=== PATIENT | male | born 1945 | race Caucasian/White ===

== ENCOUNTER 2023-05-20 13:39 | Emergency (ER) | payer MEDICARE, OTHER, SELFPAY ==
[2023-05-20 13:47] VITALS: BP 111/64; PULSE 71; RESP 18; TEMP 36.9; O2SAT 97; BMI 19.8
== END 2023-05-20 14:30 | disposition home or self-care (01) ==
LOC: ED 14:26
PROVIDERS: Emergency Provider Family Medicine; PCP Family Medicine
DX: K40.90 Unilateral inguinal hernia, without obstruction or gangrene, not specified as recurrent (principal)
CPT/HCPCS: 99282; 99283

== ENCOUNTER 2023-11-25 17:11 | Emergency (ER) | payer MEDICARE, OTHER, SELFPAY ==
[2023-11-25 17:24] VITALS: BP 151/51; PULSE 52; RESP 17; TEMP 36.4; O2SAT 97; BMI 20.4
--- NOTE | 2023-11-25 18:14 | ED_ITS ---
HPI - General Adult General Date Seen: 11/25/23 Chief complaint: Groin Pain Stated complaint: Hernia issues Time Seen by Provider: 11/25/23 18:00 History of Present Illness HPI narrative: This is a 78-year-old male brought to the ER today by his family. He has a history of dementia so is a limited historian. His primary care is through the [facility] system. 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 He presents to the ER today with his for evaluation of right groin pain and swelling. History is limited because of the patient's dementia but he is able to tell me he thinks he has a groin hernia and he thinks he probably had a left hernia repaired some years ago. His was unaware that he had any pain or trouble with his right groin. History from his is that she was out grocery shopping today and he was calling her, feeling distressed because he was having pain in his right groin. By the time she got home he said it was not really pain but more of a ?discomfort. ?. She noted a swollen area there. She brought him to the ER today to find out what was wrong and suspecting it was probably hernia, find out what needs to be done about it. He has not have any abdominal pain. No flank pain. No vomiting. No fever. Related Data Home Medications ?Medication ?Instructions ?Recorded ?Confirmed Allergy Relief (fluticasone) 05/20/23 aspirin 81 mg tablet,delayed 81 mg PO DAILY 05/20/23 05/20/23 release (Adult Aspirin Regimen) enalapril-hydrochlorothiazide 05/20/23 multivitamin (Daily Multi-Vitamin 1 tab PO DAILY 05/20/23 05/20/23 tablet) rosuvastatin 10 mg tablet 10 mg PO DAILY 05/20/23 05/20/23 sertraline 50 mg tablet 25 mg PO DAILY 05/20/23 05/20/23 Allergies Allergy/AdvReac Type Severity Reaction Status Date / Time No Known Drug Allergies Allergy Verified 05/20/23 13:50 PFSH PFSH Social History Smoking Status: Never smoker Do you use any of these nicotine containing products: None Second hand tobacco smoke exposure: No How often do you have a drink containing alcohol: never How often do you have six or more drinks on one occasion: Never AUDIT-C Alcohol total score: 0 Non-prescribed substance use: denies use service: No Exam Narrative: Exam Narrative: Constitutional: Appears well-developed and well-nourished. Alert. Conversant. Non toxic. HENT: Head: Atraumatic. Nose: Nose normal. Mouth/Throat: Oral mucosa is clear and moist. no trismus. Eyes: Conjunctivae normal. EOM normal. Pupils equal, round, and reactive to light. No scleral icterus. Neck: Normal range of motion. Neck supple. No tracheal deviation present. Cardiovascular: Normal rate, regular rhythm. No gallop. No friction rub. No murm ur heard. Symmetric radial artery pulses Pulmonary/Chest: Effort normal. No stridor. No respiratory distress. No wheezes. No rales. No rhonchi . No tenderness. Abdominal: Soft. Bowel sounds normal. No distension. No mass. No tenderness. No rebound. No guarding. : Normal circumcised penis. He does have a right inguinal/right scrotal mass with audible bowel sounds consistent with a loop of intestine in a right inguinal hernia. With the patient supine and was able to gently reduce the hernia completely back into the abdominal cavity. After this his right inguinal canal and scrotum are palpably normal. He tolerated the reduction with no pain. I had the patient perform a Valsalva maneuver and the hernia recurred. I was again able to gently and painlessly reduce it. Musculoskeletal: RUE: Normal range of motion. No tenderness. No deformity LUE: Normal range of motion. No tenderness. No deformity RLE: Normal range of motion. No edema. No tenderness. No deformity LLE: Normal range of motion. No edema. No tenderness. No deformity Lymph: No cervical adenopathy. Neurological: Alert and oriented to person, place, and time. Normal strength. CN II-VII intact. No sensory deficit. GCS eye subscore is 4. GCS verbal subscore is 5. GCS motor subscore is 6. Normal coordination Skin: Skin hyper pigmented on right cheek and around her right eye. Skin is warm and dry. No rash noted. No pallor. Normal capillary refill. Psychiatric: Normal mood. Normal affect. Const: Vital Signs, click to edit/add: Vital Signs - 24 hr 07/12/24 17:24 Temperature 97.6 F Pulse Rate [Pulse Oximeter] 52 L Respiratory Rate 17 Blood Pressure [Ri ght Upper Arm] 151/51 H Pulse Oximetry 97 Oxygen Delivery Me thod Room Air Course Vital Signs Vital signs: Initial Vital Signs Temperature 97.6 F 11/25/23 17:24 Temperature Source Temporal Artery Scan 11/25/23 17:24 Pulse Rate 52 L 11/25/23 17:24 Respiratory Rate 17 11/25/23 17:24 Blood Pressure 151/51 H 11/25/23 17:24 Blood Pressure Mean 84 11/25/23 17:24 Pulse Oximetry 97 11/25/23 17:24 Oxygen Delivery Method Room Air 11/25/23 17:24 Vital Signs Temperature 97.6 F 11/25/23 17:24 Pulse Rate 52 L 11/25/23 17:24 Respiratory Rate 17 11/25/23 17:24 Blood Pressure 151/51 H 11/25/23 17:24 Pulse Oximetry 97 11/25/23 17:24 Oxygen Delivery Method Room Air 11/25/23 17:24 Temperature 97.6 F 11/25/23 17:24 Pulse Rate 52 L 11/25/23 17:24 Respiratory Rate 17 11/25/23 17:24 Blood Pressure 151/51 H 11/25/23 17:24 Pulse Oximetry 97 11/25/23 17:24 Oxygen Delivery Method Room Air 11/25/23 17:24 Medical Decision Making MDM Narrative Medical decision making narrative: This is a pleasant 78-year-old male accompanied to the ER today by his . History is obtained mostly from his because he does have dementia. He presents with right groin pain. Differential is broad including hernia, testicular pathology such as torsion or epididymitis or orchitis, kidney stone, appendicitis, AAA, among others. Clinical examination could shows evidence for a right inguinal hernia. It was sliding an easily reducible here in the ER. Patient was able to reproduce the hernia after I reduced it by Valsalva and I was able to reduce it again. There is no evidence for any incarceration, strangulation, obstruction or any other acute surgical emergency with the hernia. I had a detailed discussion with the patient and his about the hernia. At this point he is safe for discharge from the ER but I would recommend outpatient follow-up with the surgeons in clinic. Although the hernia is not incarcerated or strangulated today, since it is causing discomfort for him, he should consider operative repair. He will follow-up with the [facility] surgery clinic within the next 1- 2 weeks. We discussed what to do with the hernia bulges out again and how to reduce it at home. We also discussed precautions for return to the ER if he is not able to reduce the hernia or if he has worsening pain, vomiting, or any other problems. Discharge Plan Discharge Clinical Impression: Inguinal hernia, right Patient Disposition: Home, Self-Care Condition: Stable Instructions: Inguinal Hernia (ED) Additional Instructions: As we discussed, please come back to the ER right away if you have worsening pain or if you have a bulging hernia the are not able to slip back in at home. Please follow-up with the [facility] surgery Clinic within the next 7- 10 days Call [phone] schedule an ER follow-up appointment with 1 of the general surgeons for your inguinal hernia. Prescriptions: No Action aspirin [Adult Aspirin Regimen] 81 mg tablet,delayed release (DR/EC) 81 mg PO DAILY enalapril-hydrochlorothiazide Allergy Relief (fluticasone) rosuvastatin 10 mg tablet 10 mg PO DAILY sertraline 50 mg tablet 25 mg PO DAILY multivitamin [Daily Multi-Vitamin] Tablet 1 tab PO DAILY Follow Up/Referrals: Tejas Spence MD [Primary Care Provider] - Stand Alone Forms: [employer] Info Instructions
--- OUTSIDE RECORDS SUMMARY | 2023-11-25 18:51 | XMS_ITS | Clinical Summary ---
Author Organization [facility] Address [place], [place] [address] Care Team Providers Care Communications Technician Name Role Phone Tejas Spence MD Primary Care Provider [phone] Allergies No known active allergies Medications Medication Sig Dispensed Refills Start Date End Date Status MEN'S MULTI-VITAMIN ORAL Take by mouth. Active aspirin 81 mg capIndications:Lacuna r stroke (HC) Take 81 mg by mouth once daily. 04/25/2023 Active donepeziL (ARICEPT) 5 mg tabletIndications:Mod erate late onset Alzheimer's dementia with mood disturbance (HC) Take 1 Tablet (5 mg) by mouth at bedtime. For memory. 30 Tablet 3 08/22/2023 Active enalapril (VASOTEC) 10 mg tabletIndications:Lucia viviana hypertension Take 1 Tablet (10 mg) by mouth once daily. For blood pressure. 90 Tablet 2 08/22/2023 Active rosuvastatin (CRESTOR) 10 mg tabletIndications:Lac unar stroke (HC) Take 1 Tablet (10 mg) by mouth once daily. For Cholesterol. 90 Tablet 2 08/22/2023 Active sertraline (ZOLOFT) 50 mg tabletIndications:Dep ression, major, in remission (HC) Take 1.5 Tablets (75 mg) by mouth every morning. For depression. 135 Tablet 2 08/22/2023 Active Active Problems Problem Noted Date Diagnosed Date Moderate late onset Alzheime r's dementia with mood disturbance 04/25/2023 Overview: 04/25/23 diagnosed at [facility]. possibel mixed AD +VD given Lacunar infarcts. Chronic rhinitis 04/25/2023 Overview: 04/25/23 flonase started Lacunar stroke 04/25/2023 Depression, major, in remission 04/25/2023 Overview: 02/2023 started on Sertraline. 04/2023 increase sertraline to 75mg daily Screening for colon cancer 02/20/2023 Overview: 04/14/2023: Colonoscopy was done, endoscopist suggested repeat Colonoscopy in 5 years, but there were no specimens collected. Memory problem 02/17/2023 Overview: Feb 2023: Symptoms started Approximately Fall 2021. Minicog 0/5. Referring to Memory program at [place]. Feb 2023: Brain MRI IMPRESSION: 1. No acute intracranial abnormality. 2. Mild diffuse parenchymal volume loss without lobar predilection. 3. Mild chronic small vessel ischemic changes and old lacunar infarct in the left peritrigonal white matter. 4. Scattered opacification of the paranasal sinuses perhaps reflecting acute sinusitis in the appropriate clinical context. April 2023: Saw Memory Visit at [place]. Vanessa Pollack M.D. increased sertraline (Zoloft) and also suggested consideration of trial of Memory enhancer medication like memantine or donepezil. August 2023: STarted on Aricept 5mg. Hypertension 02/16/2023 Mixed hyperlipidemia 02/16/2023 Overview: [id number] : previous primary care physician stopped Atorvastatin (Lipitor) due to memory concenrs. Feb 2024: Rosuvastatin (Crestor) was started 10mg. by Dr. Pollack. Hyponatremia 02/16/2023 Overview: [facility] [place]: due to Chlorthalidone ? Encounters Date Type Department Care Team Description 09/06/2023 9:15 AM CDT Orders Only [facility] [address] [place] [address] Lab, [facility] 09/06/2023 Travel from Last 3 Months Immunizations Name Administration Dates Next Due COVID-19 vaccine (Moderna 100mcg/0.5mL) PF, MDV 07/07/2020,06/05/2020 Influenza Virus, Unspecified 03/03/2016,02/29/20 14,02/17/2012 Influenza, IIV3 (Age >=3 years) 02/16/2013 Influenza, IIV4 03/24/2015 Influenza, Inactivated AIIV4 (Age 65+ Years) Preserv Free 02/22/2022,02/02/2021,02/19/2020,2018,02/22/2018,03/02/2017 Pneumococcal Poly,23-Valent (Pneumovax) 03/10/2021 Pneumococcal conj 13-Valent (Prevnar 13) 08/26/2015 Tdap 01/05/2020 Zoster (Shingrix-RZV, recombinant) 07/21/2020, Family History Medical History Relation Name Comments Lung cancer Brother Heart Disease Father Memory loss Father Memory loss Mother Unknown Other Relation Name Status Comments Brother Father Mother Other Social History Tobacco Use Types Packs/Day Years Used Date Smoking Tobacco: Former Cigarettes Q uit: 02/24/1983 Smokeless Tobacco: Never Tobacco Cessation:Counseling Given: Not Answered Alcohol Use Standard Drinks/Week Comments Not Currently 0 (1 standard drink = 0.6 oz pur e alcohol) Rarely Glass of wine. PHQ-2 Answer Date Recorded PHQ-2 TOTAL SCORE 0 04/26/2023 Social Connections Answer Date Recorded Frequency of Communication with Friends and Fami ly 0 02/17/2023 Financial Resource Strain Answer Date R ecorded Difficulty of Paying Living Expenses 3 02/17/2023 Difficulty of Paying Living Expenses Not on file 02/17/2023 Food Insecurity Answer Date Recorded Worried About Running Out of Food in the Last Ye ar 1 02/17/2023 Transportation Needs Answer Date Record ed Lack of Transportation (Medical) 1 02/17/2023 Housing Stability Answer Date Recorded Unable to Pay for Housing in the Last Year 1 02/17/2023 Sex and Gender Information Value Date Recorded Sex Assigned at Not on file Gender Identity Not on file Sexual Orientation Not on file Obstetrics History Last Filed Vital Signs Vital Sign Reading Time Taken Comments Blood Pressure 135/79 08/22/2023 3:18 PM CDT Pulse 56 08/22/2023 3:18 PM CDT Temperature - - Respiratory Rate - - Oxygen Saturation 100% 08/22/2023 3:18 PM CDT Inhaled Oxygen Concentration - - Weight 77.2 kg (170 lb 1.6 oz) 08/22/2023 3:18 P M CDT Height 180.3 cm (5' 11) 02/17/2023 1:06 PM CDT Body Mass Index 23.72 02/17/2023 1:06 PM CDT Plan of Treatment Health Maintenance Due Date Last Done Comments Hepatitis C screening for ag e 18-79 01/14/1963 COVID-19 vaccine series (2022- season) 2023 07/07/2020, 06/05/2020 Influenza for age 65+ 2024 02/22/2022 , 02/02/2021, 02/19/2020, Additional history exists BMI (ht and wt on same day) for age 18+ 02/18/2024 02/17/2023 Medicare Wellness for age 65+ 02/18/2024 02/17/2023 Depression screening for age 12+ 04/26/2024 04/26/2023, 04/25/2023, 04/25/2023, Additional history exists Tetanus booster 01/04/2030 01/05/2020 Tdap Completed 01/05/2020 Zoster (shingles) series for age 50+ Completed 07/21/2020, 05/05/2020 Pneumococcal series for age 65+ Completed , 08/26/2015 Procedures Procedure Name Priority Date/Time Associated Diagnosis Comments BASIC METABOLIC PANEL Routine 09/06/2023 9:24 AM CDT Hypertension ALT (SGPT) Routine 09/06/2023 9:24 AM CDT Mixed hyperlipidemia LIPID PANEL W REFLEX MEASURED LDL Routine 09/06/2023 9:24 AM CDT Mixed hyperlipidemia from Last 3 Months Results * LIPID PANEL W REFLEX MEASURED LDL (09/06/2023 9:24 AM CDT) CHOLESTEROL,TOTAL 136 100 - 199 mg/dL 09/06/2023 7:55 PM CDT [facility] [employer] [facility] Comment: Cholesterol, Total Reference Ranges Desirable <200 mg/dL Borderline 200-239 mg/dL High >=240 mg/dL TRIGLYCERIDES 76 <150 mg/dL 09/06/2023 7:55 PM CDT [facility] HDL CHOLESTEROL 48 >40 mg/dL 7:55 PM CDT [facility] NON-HDL CHOLESTEROL 88 <145 mg/dl 09/06/2023 7:55 PM CDT [facility] CHOL/HDL RATIO 2.83 <4.50 09/06/2023 7:55 PM CDT [facility] LDL CHOLESTEROL 73 <=130 mg/dL 09/06/2023 7:55 PM CDT [facility] VLDL CHOLESTEROL 15 <=30 mg/dL 09/06/2023 7:55 PM CDT [facility] PROVIDER ORDERED STATUS FASTING 09/06/2023 7:55 PM CDT [facility] Blood BLOOD SPECIMEN / Unknown Venipuncture / Unknown 09/06/2023 9:24 AM CDT 09/06/2023 9:25 AM CDT Tejas Spence MD CHEMISTRY Performing Organization Address City/[facility]/ZIP Co de Phone Number [facility] [address] [place] [id number], [place] * ALT (SGPT) (09/06/2023 9:24 AM CDT) ALT (SGPT) 16 10 - 50 IU/L 09/06/2023 7:55 PM CDT [facility] Blood BLOOD SPECIMEN / Unknown Venipuncture / Unknown 09/06/2023 9:24 AM CDT 09/06/2023 9:25 AM CDT Tejas Spence MD CHEMISTRY Performing Organization Address City/[facility]/ZIP Co de Phone Number [facility] [address] [place] [id number], [place] * (ABNORMAL) BASIC METABOLIC PANEL (09/06/2023 9:24 AM CDT) [facility] Signature SODIUM 139 136 - 145 mmol/L 09/06/2023 7:55 PM CDT [facility] POTASSIUM 5.0 3.5 - 5.1 mmol/L 09/06/2023 7:55 PM CDT [facility] CHLORIDE 105 98 - 107 mmol/L 09/06/2023 7:55 PM CDT [facility] CO2,TOTAL 26 22 - 29 mmol/L 09/06/2023 7:55 PM CDT [facility] ANION GAP 8 5 - 18 09/06/2023 7:55 PM CDT [facility] GLUCOSE 95 70 - 99 mg/dL 09/06/2023 7:55 PM CDT [facility] CALCIUM 9.1 8.8 - 10.2 mg/dL 09/06/2023 7:55 PM CDT [facility] BUN 18 8 - 23 mg/dL 09/06/2023 7:55 PM CDT [facility] CREATININE 0.97 0.70 - 1.20 mg/dL 09/06/2023 7:55 PM CDT [facility] BUN/CREAT RATIO 19 10 - 20 7:55 PM CDT [facility] eGFR 79(L) >90 mL/min/1.7 3m2 09/06/2023 7:55 PM CDT [facility] Comment:As of 2021, eG FR is calculated by the CKD-EPI creatinine equation without race adjustment. ??eGFR can be influenced by muscle mass, exercise, and diet. ??The reported eGFR is an estimation only and is only applicable if the renal function is stable. Blood BLOOD SPECIMEN / Unknown Venipuncture / Unknown 09/06/2023 9:24 AM CDT 09/06/2023 9:25 AM CDT Tejas Spence MD CHEMISTRY [facility] [address] [place] [address], from Last 3 Months Care Teams Communications Technician Relationship Specialty Start Date End Date Tejas Spence MD [address] [place] [address] PCP - General Family Practice 03/10/23
== END 2023-11-25 19:00 | disposition home or self-care (01) ==
LOC: ED 18:50
PROVIDERS: Emergency Provider Emergency Medicine; PCP Family Medicine
DX: K40.90 Unilateral inguinal hernia, without obstruction or gangrene, not specified as recurrent (principal)
CPT/HCPCS: 99282; 99283

== ENCOUNTER 2023-12-26 07:25 | Day surgery (SDC) | payer MEDICARE, OTHER, SELFPAY ==
[2023-12-26] VITALS (13 sets, daily range): BP systolic 100–163; BP diastolic 68–105; PULSE 47–63; RESP 15–27; TEMP 36.2–36.4; O2SAT 94–100; BMI 23.3
--- OUTSIDE RECORDS SUMMARY | 2023-12-26 07:27 | XMS_ITS | Clinical Summary ---
Author Organization [facility] Address [place], [place] [address] Care Team Providers Care Hyperion Analyst Name Role Phone Tejas Spence MD Primary Care Provider [phone] [phone] Allergies No known active allergies Medications Medication Sig Dispensed Refills Start Date End Date Status aspirin 81 mg capIndications:La cunar stroke (HC) Take 81 mg by mouth once daily. 04/25/2023 Active enalapril (VASOTEC) 10 mg tabletIndications :Primary hypertension Take 1 Tablet (10 mg) by mouth once daily. For blood pressure. 90 Tablet 2 08/22/2023 Active rosuvastatin (CRESTOR) 10 mg tabletIndications :Lacunar stroke (HC) Take 1 Tablet (10 mg) by mouth once daily. For Cholesterol. 90 Tablet 2 08/22/2023 Active sertraline (ZOLOFT) 50 mg tabletIndications :Depression, major, in remission (HC) Take 1.5 Tablets (75 mg) by mouth every morning. For depression. 135 Tablet 2 08/22/2023 Active atorvastatin (LIPITOR) 40 mg tablet Take 40 mg by mouth. 10/27/2022 Active brinzolamide (AZOPT) 1 % ophthalmic suspension INSTILL ONE DROP INTO RIGHT EYE EVERY MORNING* 05/14/2023 Active dorzolamide-timol oL (COSOPT) 2-0.5 % ophthalmic solution INSTILL ONE DROP INTO RIGHT EYE TWICE DAILY* 11/09/2023 Active latanoprost (XALATAN) 0.005 % ophthalmic solution INSTILL ONE DROP INTO EACH EYE AT BEDTIME* Active triamcinolone 0.025 % cream apply a thin layer around lower right eyelid 4 times daily* 09/02/2023 Active donepeziL (ARICEPT) 5 mg tabletIndications :Moderate late onset Alzheimer's dementia with mood disturbance (HC) Take 1 Tablet (5 mg) by mouth at bedtime. For memory. 90 Tablet 1 12/17/2023 Active MEN'S MULTI-VITAMIN ORAL Take by mouth. 4 Discontinued(*Pa tient states no longer taking) donepeziL (ARICEPT) 5 mg tabletIndications :Moderate late onset Alzheimer's dementia with mood disturbance (HC) Take 1 Tablet (5 mg) by mouth at bedtime. For memory. 30 Tablet 3 08/22/2023 4 Discontinued Active Problems Problem Noted Date Diagnosed Date Essential hypertension 12/13/2023 Moderate late onset Alzheime r's dementia with mood disturbance 04/25/2023 Overview: 04/25/23 diagnosed at [facility]. possibel mixed AD +VD given [...] Minicog 0/5. Referring to Memory program at [place]. Feb 2023: Brain MRI IMPRESSION: 1. No acute intracranial abnormality. 2. Mild diffuse parenchymal volume loss without lobar predilection. 3. Mild chronic small vessel ischemic changes and old lacunar infarct in the left peritrigonal white matter. 4. Scattered opacification of the paranasal sinuses perhaps reflecting acute sinusitis in the appropriate clinical context. April 2023: Saw Memory Visit at [place]. Vanessa Pollack M.D. increased sertraline (Zoloft) and also suggested consideration of trial of Memory enhancer medication like memantine or donepezil. August 2023: STarted on Aricept 5mg. Hypertension 02/16/2023 Mixed hyperlipidemia 02/16/2023 Overview: [id number] : previous primary care physician stopped Atorvastatin (Lipitor) due to memory concenrs. Feb 2024: Rosuvastatin (Crestor) was started 10mg. by Dr. Pollack. Hyponatremia 02/16/2023 Overview: [facility]: due to Chlorthalidone ? Encounters Date Type Department Care Team Description 12/15/2023 Refill [facility] [address] [place] [address] Tejas Spence MD Refill Request (Donepezil) 12/14/2023 8:45 AM CDT Office Visit [facility] [address] [place] [address] Augie Rogers, Pre-Op Exam (Hernia surgery on 12/26/23 [facility] with DR JEANETTE QUARLES [phone] /) 12/14/2023 Travel 12/13/2023 Telephone [facility] [address] [place] [address] Jeanette Quarles MD scheduling 12/13/2023 Telephone [facility] [address] [place] [address] Jeanette Quarles MD from Last 3 Months Immunizations Name Administration Dates Next Due COVID-19 vaccine (Moderna 100mcg/0.5mL) CICI REDDY 07/07/2020,06/05/2020 Influenza Virus, Unspecified 03/03/2016,02/29/20 14,02/17/2012 Influenza, [...] Unknown Other Relation Name Status Comments Brother (Age 80) Lung cance r Father (Age 94) Old age Mother (Age 94) Old age Other Social History Tobacco Use Types Packs/Day Years Used Date Smoking Tobacco: Former Cigarettes Q uit: 02/24/1983 Smokeless Tobacco: Never Tobacco Cessation:Counseling Given: No Alcohol Use Standard Drinks/Week Comments Yes 0 (1 standard drink = 0.6 oz [...] Sign Reading Time Taken Comments Blood Pressure 107/69 12/14/2023 8:53 AM CDT Pulse 50 12/14/2023 8:53 AM CDT Temperature - - Respiratory Rate - - Oxygen Saturation 99% 12/14/2023 8:53 AM CDT Inhaled Oxygen Concentration - - Weight 80.2 kg (176 lb 12.8 oz) 12/14/2023 8:53 AM CDT Height 180.3 cm (5' 11) 02/17/2023 1:06 PM CDT Body Mass Index 24.66 02/17/2023 1:06 PM CDT Plan of Treatment Upcoming Encounters Date Type Department Care Team (Late st Contact Info) Description 01/10/2024 1:00 PM CDT Office Visit [facility] [address] [place] [address] Jeanette Quarles MD [address] [place] [address] Health Maintenance Due Date Last Done Comments [...] Procedure Name Priority Date/Time Associated Diagnosis Comments POTASSIUM Routine 12/14/2023 9:38 AM CDT Preop general physical exam from Last 3 Months Results * POTASSIUM (12/14/2023 9:38 AM CDT) POTASSIUM 4.5 3.5 - 5.1 mmol/L 12/14/2023 6:20 PM CDT [facility] Blood BLOOD SPECIMEN / Unknown Venipuncture / Unknown 12/14/2023 9:38 AM CDT 12/14/2023 9:38 AM CDT Augie Rogers DO CHEMISTRY [facility] [address] [place] [address], from Last 3 Months Care Teams Hyperion Analyst Relationship Specialty Start Date End Date Tejas Spence MD [address] [place] [address] PCP - General Family Practice 03/10/23
[2023-12-26] MEDS: LACTATED RINGERS 1000 ML 1,000 ML 100 ML IV (07:40)
--- NOTE | 2023-12-26 09:19 | W.PM.H&PU ---
History & Physical Update History & Physical Update H&P Reviewed and patient assessed: No changes noted
--- NOTE | 2023-12-26 09:19 | PM.GSPRC ---
Operative Note Date of procedure: 12/26/23 Pre-op diagnosis: Right inguinal hernia Post-op diagnosis: Same Type of Procedure: Open repair right inguinal hernia with mesh Indications: The patient is a 78-year-old male with a history of right inguinal hernia. He developed discomfort of the groin and was found to have a large right inguinal hernia. This was able to be reduced and he was referred for a surgical consult. Because of his increase in symptoms I recommended repair. He was noted to have what appeared to be a fungal infection of the right groin, therefore I recommended repair once this had cleared up. He presents today for repair. Procedure Description: After discussing the risks and benefits of the procedure, the patient signed informed consent.? The operative site was marked and the patient was brought to the operating room and placed on the operating table in supine position.? Care was taken to pad the patient's pressure points.?? The patient was then given sedation by anesthesia.?? The operative site was then prepped and draped in the usual sterile fashion.? A time-out was then performed. Local anesthetic was injected into the skin and subcutaneous tissue overlying the inguinal canal. An ilioinguinal nerve block was performed. An oblique incision was made over the external ring. Dissection was carried down into the subcutaneous tissue using cautery until the external oblique fascia was encountered. This was cleared off. The external ring was identified and after injection of more local anesthetic, the external oblique was incised using a knife. This was extended using the Metzenbaum scissors with care to dissect the underlying cord structures away from the fascia before cutting. A fairly large hernia sac was encountered. I was able, however to bluntly dissect around the hernia sac and looped the cord with a Cesar drain. In indirect inguinal hernia was identified. The hernia sac was dissected off of the cord structures. The sac was long and narrow. It was open to ensure no abdominal contents were contained within. The sac was then was then ligated and the proximal and reduced into the abdomen. A piece of polypropylene mesh was obtained and cut to size. This was secured to the pubic tubercle using to 0 Prolene on a double-armed suture. The Prolene was run along the inguinal ligament inferiorly and along the transversalis fascia superiorly, securing the tails around the cord and re-creating the internal ring. The ring was just large enough to permit my fingertip. The wound was examined for hemostasis which was found to be adequate. Of note, it appeared as though the ilioinguinal nerve was undisturbed and was away from the mesh repair. The external oblique fascia was then reapproximated with absorbable suture. The wound was then closed in layers including Catrachito's fascia and the dermis with absorbable suture. The skin was then closed with a running subcuticular suture. Glue was applied. Instrument, sponge, and needle counts were correct at the end of the case. The patient was woken and taken to the PACU in stable condition. ? The patient tolerated the procedure well. Findings: Indirect right inguinal hernia. Anesthesia: GETA Surgeon: Jeanette Quarles MD Estimated blood loss (mL): 5 Condition: stable Disposition: PACU
--- NOTE | 2023-12-26 09:21 | W.ANESCHARGE ---
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
[2023-12-26] MEDS: CEFAZOLIN 1 GM inj IVP (09:35)
[2023-12-26] MEDS: LIDOCAINE 1 % PF 30 ML INJECTION (10:30)
[2023-12-26] MEDS: BUPIVACAINE 0.5% 30 ML INJECTION (10:30)
--- NOTE | 2023-12-26 11:03 | W.ANESCHARGE ---
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
[2023-12-26] MEDS: ACETAMINOPHEN 325 MG TABLET 650 MG PO (12:03)
== END 2023-12-26 13:07 | disposition home or self-care (01) ==
PROVIDERS: PCP Family Medicine; Visit Provider Surgery
PROC: (CPT 49505; principal; 2023-12-26 09:15)
DX: K40.90 Unilateral inguinal hernia, without obstruction or gangrene, not specified as recurrent (principal)
CPT/HCPCS: 49505; 00830; 99100; A9270; C1781; J0330; J0665; J0690; J1100; J2001; J2250; J2405; J2704; J3010; J3490; J7120

== ENCOUNTER 2025-03-20 18:47 | Outpatient (CLI) | payer MEDICARE, OTHER, SELFPAY | END 2025-03-20 18:48 | disposition home or self-care (01) | LOC: AMB 04-04 19:02 | PROVIDERS: PCP Family Medicine; Visit Provider Family Medicine | DX: S09.93XA Unspecified injury of face, initial encounter (principal); W01.0XXA Fall on same level from slipping, tripping and stumbling without subsequent striking against object, initial encounter; Y92.007 Garden or yard of unspecified non-institutional (private) residence as the place of occurrence of the external cause | CPT/HCPCS: A0425; A0429 ==

== ENCOUNTER 2025-03-20 19:02 | Emergency (ER) | payer MEDICARE, OTHER, SELFPAY ==
--- OUTSIDE RECORDS SUMMARY | 2025-03-20 19:03 | XMS_ITS | Clinical Summary ---
Author Organization [facility] Address [address] [place] [id number] Care Team Providers Care Ceramic Capacitor Processor Name Role Phone Tejas Spence MD Primary Care Provider [phone] Allergies Active Allergy Reactions Criticality Noted Date Comments Dorzolamide Edema High 12/26/2023 Itchy Neomycin *Unknown High 03/12/2025 Medications aspirin 81 mg capIndications:L acunar stroke (HC) Take 81 mg by mouth once daily. 3 Active dorzolamide-alison loL (COSOPT) 2-0.5 % ophthalmic solution INSTILL ONE DROP INTO RIGHT EYE TWICE DAILY* 4 Active latanoprost (XALATAN) 0.005 % ophthalmic solution INSTILL ONE DROP INTO EACH EYE AT BEDTIME* Active triamcinolone (ARISTOCORT; KENALOG) 0.1 % creamIndications :Acute eczema Apply topically to affected area(s) three times daily. DO NOT use on eyes, only on upper left arm at dry patch of skin area. 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 For memory. 90 Tablet 3 4 Active enalapril (VASOTEC) 10 mg tabletIndication s:Primary hypertension Take 1 Tablet (10 mg) by mouth once daily. For blood pressure. 90 Tablet 3 4 Active rosuvastatin (CRESTOR) 10 mg tabletIndication s:Lacunar stroke (HC) Take 1 Tablet (10 mg) by mouth once daily. For Cholesterol. 90 Tablet 3 4 Active sertraline (ZOLOFT) 50 mg tabletIndication s:Depression, major, in remission Take 1.5 Tablets (75 mg) by mouth once daily in the morning. For depression. 135 Tablet 3 4 Active acetaZOLAMIDE (DIAMOX SEQUEL) 500 mg Extended-Release capsule Take 1 Capsule by mouth two times daily. 5 Active brimonidine 0.2 % ophthalmic solution INSTILL ONE DROP INTO RIGHT EYE TWICE DAILY* 5 Active brinzolamide (AZOPT) 1 % ophthalmic suspension INSTILL ONE DROP INTO RIGHT EYE TWICE DAILY* 5 Active ketorolac 0.5 % ophthalmic solution 5 Active ofloxacin 0.3 % ophthalmic (OCUFLOX) 0.3 % ophthalmic solution 5 Active prednisoLONE acetate 1% ophthalmic (ECONOPRED PLUS, PRED FORTE, OMNIPRED) suspension 5 Active atorvastatin (LIPITOR) 40 mg tablet Take 40 mg by mouth. 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 possibel mixed AD +VD given Lacunar infarcts. Chronic rhinitis 04/25/2023 Overview (04/25/2023): 04/25/23 flonase started Lacunar stroke 04/25/2023 Depression, major, in remission 04/25/2023 Overview (04/25/2023): 02/2023 started on Sertraline. 04/2023 increase sertraline to 75mg daily Screening for colon cancer 02/20/2023 Overview (02/20/2023): 04/14/2023: Colonoscopy was done, endoscopist suggested repeat Colonoscopy in 5 years, but there were no specimens collected. Memory problem 02/17/2023 Overview (08/24/2023): Feb 2023: Symptoms started Approximately Fall 2021. Minicog 0/5. Referring to Memory program at [place]. Feb 2023: Brain MRI IMPRESSION: 1. No acute intracranial abnormality. 2. Mild diffuse parenchymal volume loss without lobar predilection. 3. Mild chronic small vessel ischemic changes and old lacunar infarct in the left peritrigonal white matter. 4. Scattered opacification of the paranasal sinuses perhaps reflecting acute sinusitis in the appropriate clinical context. April 2023: Saw Memory Visit at [place]. Vanessa Pollack M.D. increased sertraline (Zoloft) and also suggested consideration of trial of Memory enhancer medication like memantine or donepezil. August 2023: STarted on Aricept 5mg. Hypertension 02/16/2023 Mixed hyperlipidemia 02/16/2023 Overview (08/11/2023): 2923-2386 : previous primary care physician stopped Atorvastatin (Lipitor) due to memory concenrs. Feb 2024: Rosuvastatin (Crestor) was started 10mg. by Dr. Pollack. Hyponatremia 02/16/2023 Overview (02/17/2023): [place]: due to Chlorthalidone ? Umbilical hernia without obstruction and without gangrene 02/03/2015 Overview (03/12/2025): Without symptoms Glaucoma 01/14/2015 Encounters Date Type Department Care Team Description 03/12/2025 1:15 PM CDT Office Visit [facility] [address] [place] [address] Sheila Beltran, Preoperative Exam (03/19/2025 RIGHT eye cataract and glaucoma - Dr. Nam Med[facility] - FAX: [phone] ) 03/12/2025 Travel from Last 3 Months Immunizations Immunization Administration Dates Next Due COVID-19 VACCINE SPIKEVAX (M ODERNA 50MCG/0.5ML) 12YO+ PFS 04/02/2024 COVID-19 vaccine (Moderna 100mcg/0.5mL) PF, MDV 07/07/2020,06/05/2020 Influenza Virus, Unspecified 03/03/2016,02/29/20 14,02/17/2012 Influenza, IIV3 (Age >=3 years) 02/16/2013 Influenza, IIV4 03/24/2015 Influenza, Inactivated AIIV4 (Age 65+ Years) Preserv Free 02/22/2022,02/02/2021,02/19/2020,2018,02/22/2018,03/02/2017 Influenza, Inactivated IIV3 (Age 65+ Years) Preserv Free 04/02/2024 Pneumococcal Poly,23-Valent (Pneumovax) 03/10/2021 Pneumococcal conj 13-Valent [...] 02/24/1983 Smokeless Tobacco: Never Tobacco Cessation:Counseling Given: Yes Alcohol Use Standard Drinks/Week Comments Yes 0 (1 standard drink = 0.6 oz pur e alcohol) Rarely Glass of wine. PHQ-2 Answer Date Recorded PHQ-2 TOTAL SCORE 0 04/02/2024 Social Connections Answer Date Recorded Do you often feel lonely or isolated from those around you? 0 04/02/2024 Alcohol Use Answer Date Recorded How often do you have a drink containing alcohol ? 1 03/12/2025 How many drinks containing a lcohol do you have on a typical day when you are drinking? 0 03/12/2025 How often do you have five or more drinks on one occasion? 0 03/12/2025 Financial Resource Strain Answer Date R ecorded Difficulty of Paying Living Expenses 3 04/02/2024 Difficulty of Paying Living Expenses Not on file 04/02/2024 Food Insecurity Answer Date Recorded Do you worry your food will run out before you are able to buy more? 1 04/02/2024 Transportation Needs Answer Date Record ed Does lack of transportation keep you from medica l appointments? 1 04/02/2024 Does lack of transportation keep you from work, meetings or getting things that you need? 1 04/02/2024 Housing Stability Answer Date Recorded What is your housing situation today? 1 04/02/2024 Utilities Answer Date Recorded Do you have trouble paying f or utilities (for example, heat, electricity, water, phone)? 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 Plan of Treatment Health Maintenance Due Date Last Done Comments RSV vaccine for adults or (1 - 1-dose 75+ series) 01/14/2019 Influenza Vaccine (#1) 2025 , 02/22/2022, 02/02/2021, Additional history exists BMI (ht and wt on same day) for age 18+ 04/02/2025 04/02/2024, 02/17/2023 Depression screening for age 12+ 04/02/2025 04/02/2024, 04/25/2023, 04/25/2023, Additional history exists Medicare Wellness for age 65+ 04/03/2025 04/02/2024, 02/17/2023 Tetanus booster 01/04/2030 01/05/2020 Zoster (shingles) series for age 50+ Completed 07/21/2020, 05/05/2020 Pneumococcal series for age 50+ Completed 03/10/2021, 08/26/2015 Hepatitis B series for 19+ Aged Out N o longer eligible based on patient's age to complete this topic Insurance MEDICARE PB ONLY [facility] MEDICARE PART B HB ONLY Care Teams Ceramic Capacitor Processor Relationship Specialty Start Date End Date Tejas Spence MD [address] [place] [id number] PCP - General Family Practice 03/10/23
[2025-03-20 19:10] VITALS: BP 133/76; PULSE 99; RESP 20; TEMP 36.7; O2SAT 98; BMI 22.4
--- NOTE | 2025-03-20 19:20 | ED.GENADULT ---
HPI - General Adult General Chief complaint: Head Injury/Pain Stated complaint: Fall Time Seen by Provider: 03/20/25 19:07 History of Present Illness HPI narrative: CC: Head Injury s/p Fall pt. was walking outside when he tripped and fell onto his face. denies LOC. bruising/ bleeding to left side of face. right eye red d/t recent cataract surgery. not on blood thinners. 80-year-old man presenting to the emergency department following a trip and fall event outside. Had been walking outside and he describes catching his foot falling forward. Does have a history of some stiffness with gait instability I take from our conversation. Dementia. There was no loss of consciousness. He denies neck or back pain. There was no chest pain or shortness of breath. No abdominal pain. Primary pain is in his face and left side of the face in particular; periorbital. Has sustained abrasions. Oozing blood. Dentition feels intact. Denies diplopia however he just had cataract surgery in the right eye and does not have vision from that eye at this time. No anticoagulant other than aspirin. Related Data Home Medications ?Medication ?Instructions ?Recorded ?Confirmed aspirin 81 mg tablet,delayed 81 mg PO DAILY 05/20/23 03/20/25 release (Adult Aspirin Regimen) multivitamin (Daily Multi-Vitamin 1 tab PO DAILY 05/20/23 03/20/25 tablet) rosuvastatin 10 mg tablet 10 mg PO DAILY 05/20/23 03/20/25 sertraline 50 mg tablet 25 mg PO DAILY 05/20/23 03/20/25 atorvastatin 40 mg tablet (Lipitor) 40 mg PO DAILY 12/22/23 03/20/25 donepezil 5 mg tablet 5 mg PO QPM 12/22/23 03/20/25 enalapril 10 1 tab PO DAILY 03/20/25 03/20/25 mg-hydrochlorothiazide 25 mg tablet Previous Rx's ?Medication ?Instructions ?Recorded nystatin 100,000 unit/gram topical 1 applic topical QDAY #15 grams 12/13/23 powder oxycodone 5 mg tablet 2.5 - 5 mg (0.5 - 1 x 5 mg) PO Q8H 12/26/23 PRN Pain #5 tabs Allergies Allergy/AdvReac Type Severity Reaction Status Date / Time dorzolamide Allergy Intermediate Swelling Verified 12/26/23 07:40 of the Eye Review of Systems Status of ROS: Reports: 6 or more systems reviewed and unremarkable except as noted in History and below [facility] Medical History Inguinal hernia, right ?K40.90 - Unilateral inguinal hernia, without obstruction or gangrene, not specified as recurrent (ICD-10) Lacunar stroke ?I63.81 - Other cerebral infarction due to occlusion or stenosis of small artery (ICD-10) Dementia ?F03.90 - Unspecified dementia, unspecified severity, without behavioral disturbance, psychotic disturbance, mood disturbance, and anxiety (ICD-10) Hypertension ?I10 - Essential (primary) hypertension (ICD-10) Hyperlipidemia ?E78.5 - Hyperlipidemia, unspecified (ICD-10) Surgical History History of pyloromyotomy ?Z98.890 - Other specified postprocedural states (ICD-10) H/O inguinal hernia repair ?Z98.890 - Other specified postprocedural states (ICD-10) ?Z87.19 - Personal history of other diseases of the digestive system (ICD-10) Social History Smoking Status: Never smoker Do you use any of these nicotine containing products: None Second hand tobacco smoke exposure: No How often do you have a drink containing alcohol: never How often do you have six or more drinks on one occasion: Never AUDIT-C Alcohol total score: 0 Non-prescribed substance use: denies use service: No Exam Narrative: Exam Narrative: Pleasant. Speak little bit fluidly. General mild tremor with movement. Little stiff in movements. There is broad abrasion, bruising purpling and swelling at the left maxillary face and brow. Quite a bit of tenderness over the zygoma. Ear canals are free of fluid. Left pupil 3 mm reacting appropriately to light. Right pupil demonstrating afferent reaction. Extraocular movements are full bilaterally. Right eye with diffuse redness/subconjunctival hemorrhage apparently already present related to surgery. Oropharynx is unremarkable. No pain to palpation over the mandible. No pain to palpation about the clavicles or shoulders. Moving upper extremities otherwise without apparent pain/difficulty. Neck is supple nontender. Back is nontender without deformity. Heart in elevated rate but regular rhythm. No pain to palpation over the chest. Abdomen is soft nontender. No pain or instability to palpation over the hips. Lower extremities with light abrasion over the left knee. Tender here. No effusion noted. He was ambulatory. Const: Vital Signs, click to edit/add: Vital Signs - 24 hr 03/20/25 19:10 Temperature 98.0 F Pulse Rate [Right Pulse Oximeter] 99 Respiratory Rate 20 Blood Pressure [Ri ght Upper Arm] 133/76 Pulse Oximetry 98 Oxygen Delivery Me thod Room Air Documenting provider has reviewed patient's vital signs: yes Course Vital Signs Vital signs: Initial Vital Signs Temperature 98.0 F 03/20/25 19:10 Temperature Source Temporal Artery Scan 03/20/25 19:10 Pulse Rate 99 03/20/25 19:10 Respiratory Rate 20 03/20/25 19:10 Blood Pressure 133/76 03/20/25 19:10 Blood Pressure Mean 95 03/20/25 19:10 Blood Pressure Position Sitting 03/20/25 19:10 Pulse Oximetry 98 03/20/25 19:10 Oxygen Delivery Method Room Air 03/20/25 19:10 Vital Signs Temperature 98.0 F 03/20/25 19:10 Pulse Rate 99 03/20/25 19:10 Respiratory Rate 20 03/20/25 19:10 Blood Pressure 133/76 03/20/25 19:10 Pulse Oximetry 98 03/20/25 19:10 Oxygen Delivery Method Room Air 03/20/25 19:10 Temperature 98.0 F 03/20/25 19:10 Pulse Rate 72 03/20/25 22:45 Respiratory Rate 16 03/20/25 22:45 Blood Pressure 141/85 H 03/20/25 22:45 Pulse Oximetry 98 03/20/25 22:45 Oxygen Delivery Method Room Air 03/20/25 22:45 Medical Decision Making MDM Narrative Medical decision making narrative: Accompanied by family. This appears to be a mechanical fall. He is clear enough to describe current symptoms. Will need imaging of head and face. I would suspect at a minimum facial bone fracture to be present. Dementia likely contributed to this fall. Does not feel that he needs anything for pain or nausea at this time. Head CT and facial bone CT independently reviewed by me does not reveal any acute bleeding abnormality intracranially. There do however appear to be at a minimum minimally displaced fractures of the zygoma/zygomatic arch on the left. Fluid in maxillary sinuses. INDICATION: Fall on face, left-sided injuries. COMPARISON: None available. TECHNIQUE: CT of the head without IV contrast. Coronal and sagittal reconstructions. FINDINGS: Brain: No intracranial hemorrhage, abnormal extra-axial fluid collection, or evidence of acute infarct. No mass effect or midline shift. Mild generalized cerebral and cerebellar volume loss with associated ex vacuo dilation of the lateral ventricles. Mild presumed chronic small vessel ischemic disease. Skull base and calvarium: Please refer to separate report for discussion of the facial bones and paranasal sinuses. The mastoid air cells are clear. Status post right pseudophakia. Curvilinear hyperdense focus in the superolateral right orbit is presumably postoperative in nature. Soft tissues: Soft tissue swelling in the left cheek. IMPRESSION: 1. No acute intracranial findings. 2. Generalized parenchymal volume loss and mild chronic small vessel ischemic disease. 3. Soft tissue swelling in the left cheek. 4. Please refer to separate report for discussion of the facial bones and paranasal sinuses. Please note that all CT scans at this facility use dose modulation, iterative reconstruction, and/or weight-based dosing when appropriate to reduce radiation dose to as low as reasonably achievable. Dictated by Suzi Rodriguez MD @ 03/20/2025 8:16:42 PM INDICATION: Fall on face, left-sided injuries. COMPARISON: None available. TECHNIQUE: CT of the facial bones without IV contrast. Coronal and sagittal reconstructions. FINDINGS: There is soft tissue swelling in the left cheek. There are acute comminuted displaced fractures along the anterior and posterior king of the left maxillary sinus, with a nondisplaced fracture line extending along the left orbital floor. Acute minimally displaced fracture of the posterior left zygomatic arch. Status post right pseudophakia. Small curvilinear hyperdense focus in the superolateral right orbit is presumably postoperative in nature. The globes otherwise appear intact with symmetric extraocular muscles. No sign of intraorbital injury or orbital fat herniation. The frontal, ethmoid, and sphenoid sinuses are clear. There is mucosal thickening and air-fluid levels in the bilateral maxillary sinuses. The fluid within the left maxillary sinus is hyperdense suggesting blood products. Bony hyperostosis of the king of the right maxillary sinus. Slight leftward nasal septal deviation and spurring. The mastoid air cells are clear. The mandible is intact and the temporomandibular joints are anatomically aligned. Visualized intracranial contents are unremarkable. The imaged cervical spine is grossly negative. IMPRESSION: 1. Soft tissue swelling in the left cheek, with acute comminuted displaced fractures of the anterior and posterior king of the left maxillary sinus and a fracture line extending along the left orbital floor. No sign of intraorbital injury or orbital fat herniation. 2. Acute minimally displaced fracture of the posterior left zygomatic arch. 3. Mucosal thickening and air-fluid levels in the bilateral maxillary sinuses with hyperdense fluid in the left maxillary sinus. Findings likely represent posttraumatic blood products with superimposed acute sinusitis. 4. Bony hyperostosis of the king of the right maxillary sinus suggesting changes of chronic sinusitis. Please note that all CT scans at this facility use dose modulation, iterative reconstruction, and/or weight-based dosing when appropriate to reduce radiation dose to as low as reasonably achievable. Dictated by Suzi Rodriguez MD @ 03/20/2025 8:25:07 PM I did discuss these findings with on[place] [facility] [place] then with [place]acial [place] [facility] as [place]. Arranged for outpatient follow-up. No antibiotics are recommended. Returned to further clean up Mr. Juárez's face and did trim away very small amount of tissue. There was grit from the fall that also required removal. Placed antibiotic ointment and Telfa bandages. See patient discharge plan for further discussion I would ice your left knee a couple of times daily over the next few days. Consider carefully icing your face as well. Can take up to 600 mg of ibuprofen or up to 1000 mg of acetaminophen per dose. Change dressing daily or sooner if needed, with some antibiotic ointment and Telfa. Probably in about 3 days could just go to keeping moist with white petroleum jelly. Take copies of this imaging with you of the facial bone CT and head CT. [facility] [place] looked at the images but you could still take these over-reads with you to follow-up. You have a follow-up appointment at a [facility] March 28 at 8:00 a.m. Address is [address] [place] [address] on the 4th floor (Dentistry it says) [place] [address] Phone number for them is [phone] if you have concerns or questions in the meantime. Be seen sooner for marked increase in pain, significant pain with eye movement, worsening vision, fever, purulent drainage, repeated vomiting. Medical Records Medical records reviewed: Yes I reviewed the patient's medical records Discharge Plan Discharge Clinical Impression: Closed head injury, Closed fracture of left maxillary sinus, Closed fracture of left orbital floor, Closed fracture of zygomatic arch, Abrasion, Contusion Patient Disposition: Home w/ Parent or Adult Condition: Improved Additional Instructions: I would ice your left knee a couple of times daily over the next few days. Consider carefully icing your face as well. Can take up to 600 mg of ibuprofen or up to 1000 mg of acetaminophen per dose. Change dressing daily or sooner if needed, with some antibiotic ointment and Telfa. Probably in about 3 days could just go to keeping moist with white petroleum jelly. Take copies of this imaging with you of the facial bone CT and head CT. [facility] [place] looked at the images but you could still take these over-reads with you to follow-up. You have a follow-up appointment at a [facility] March 28 at 8:00 a.m. Address is [address] [place] [address] on the 4th floor (Dentistry it says) [place] [address] Phone number for them is [phone] if you have concerns or questions in the meantime. Be seen sooner for marked increase in pain, significant pain with eye movement, worsening vision, fever, purulent drainage, repeated vomiting. Prescriptions: No Action nystatin 100,000 unit/gram powder 1 applic topical QDAY Qty: 15 1RF atorvastatin [Lipitor] 40 mg tablet 40 mg PO DAILY donepezil 5 mg tablet 5 mg PO QPM oxycodone 5 mg Tablet 2.5 - 5 mg PO Q8H PRN (Reason: Pain) Qty: 5 0RF aspirin [Adult Aspirin Regimen] 81 mg tablet,delayed release (DR/EC) 81 mg PO DAILY rosuvastatin 10 mg tablet 10 mg PO DAILY sertraline 50 mg tablet 25 mg PO DAILY multivitamin [Daily Multi-Vitamin] Tablet 1 tab PO DAILY enalapril-hydrochlorothiazide 10-25 mg tablet 1 tab PO DAILY Follow Up/Referrals: Tejas Spence MD [Primary Care Provider, Family Practice] Stand Alone Forms: [employer] Info Instructions
--- NOTE | 2025-03-20 19:34 | CRLHL7_ITS ---
For Patients: As a result of the Century Cures Act, medical imaging exams and procedure reports are released immediately into your electronic medical record. You may view this report before your referring provider. If you have questions, please contact your health care provider. INDICATION: Fall on face, left-sided injuries. COMPARISON: None available. TECHNIQUE: CT of the head without IV contrast. Coronal and sagittal reconstructions. FINDINGS: Brain: No intracranial hemorrhage, abnormal extra-axial fluid collection, or evidence of acute infarct. No mass effect or midline shift. Mild generalized cerebral and cerebellar volume loss with associated ex vacuo dilation of the lateral ventricles. Mild presumed chronic small vessel ischemic disease. Skull base and calvarium: Please refer to separate report for discussion of the facial bones and paranasal sinuses. The mastoid air cells are clear. Status post right pseudophakia. Curvilinear hyperdense focus in the superolateral right orbit is presumably postoperative in nature. Soft tissues: Soft tissue swelling in the left cheek. IMPRESSION: 1. No acute intracranial findings. 2. Generalized parenchymal volume loss and mild chronic small vessel ischemic disease. 3. Soft tissue swelling in the left cheek. 4. Please refer to separate report for discussion of the facial bones and paranasal sinuses. Please note that all CT scans at this facility use dose modulation, iterative reconstruction, and/or weight-based dosing when appropriate to reduce radiation dose to as low as reasonably achievable. Dictated by Suzi Rodriguez MD @ 03/20/2025 8:16:42 PM (Electronically Signed)
--- NOTE | 2025-03-20 19:35 | CRLHL7_ITS ---
For Patients: As a result of the Century Cures Act, medical imaging exams and procedure reports are released immediately into your electronic medical record. You may view this report before your referring provider. If you have questions, please contact your health care provider. INDICATION: Fall on face, left-sided injuries. COMPARISON: None available. TECHNIQUE: CT of the facial bones without IV contrast. Coronal and sagittal reconstructions. FINDINGS: There is soft tissue swelling in the left cheek. There are acute comminuted displaced fractures along the anterior and posterior king of the left maxillary sinus, with a nondisplaced fracture line extending along the left orbital floor. Acute minimally displaced fracture of the posterior left zygomatic arch. Status post right pseudophakia. Small curvilinear hyperdense focus in the superolateral right orbit is presumably postoperative in nature. The globes otherwise appear intact with symmetric extraocular muscles. No sign of intraorbital injury or orbital fat herniation. The frontal, ethmoid, and sphenoid sinuses are clear. There is mucosal thickening and air-fluid levels in the bilateral maxillary sinuses. The fluid within the left maxillary sinus is hyperdense suggesting blood products. Bony hyperostosis of the king of the right maxillary sinus. Slight leftward nasal septal deviation and spurring. The mastoid air cells are clear. The mandible is intact and the temporomandibular joints are anatomically aligned. Visualized intracranial contents are unremarkable. The imaged cervical spine is grossly negative. IMPRESSION: 1. Soft tissue swelling in the left cheek, with acute comminuted displaced fractures of the anterior and posterior king of the left maxillary sinus and a fracture line extending along the left orbital floor. No sign of intraorbital injury or orbital fat herniation. 2. Acute minimally displaced fracture of the posterior left zygomatic arch. 3. Mucosal thickening and air-fluid levels in the bilateral maxillary sinuses with hyperdense fluid in the left maxillary sinus. Findings likely represent posttraumatic blood products with superimposed acute sinusitis. 4. Bony hyperostosis of the king of the right maxillary sinus suggesting changes of chronic sinusitis. Please note that all CT scans at this facility use dose modulation, iterative reconstruction, and/or weight-based dosing when appropriate to reduce radiation dose to as low as reasonably achievable. Dictated by Suzi Rodriguze MD @ 03/20/2025 8:25:07 PM (Electronically Signed)
[2025-03-20 20:49] VITALS: BP 132/75; PULSE 64; RESP 16; O2SAT 97
[2025-03-20 22:45] VITALS: BP 141/85; PULSE 72; RESP 16; O2SAT 98
== END 2025-03-20 22:58 | disposition home or self-care (01) ==
PROVIDERS: Emergency Provider Family Medicine; PCP Family Medicine
DX: S09.90XA Unspecified injury of head, initial encounter (principal); S02.40DA Maxillary fracture, left side, initial encounter for closed fracture; S02.32XA Fracture of orbital floor, left side, initial encounter for closed fracture; S02.40FA Zygomatic fracture, left side, initial encounter for closed fracture; S80.212A Abrasion, left knee, initial encounter; F03.90 Unspecified dementia, unspecified severity, without behavioral disturbance, psychotic disturbance, mood disturbance, and anxiety; W01.0XXA Fall on same level from slipping, tripping and stumbling without subsequent striking against object, initial encounter; Y93.01 Activity, walking, marching and hiking
CPT/HCPCS: 70450; 70486; 99284